=== PATIENT | female | born 1975 | race Caucasian/White ===

== ENCOUNTER → 2017-10-23 | Outpatient (CLI) | payer BC ==
--- NOTE | 2017-10-23 19:08 | DIAGNOSTIC IMAGING REPORT ---
LUMBAR SPINE 5 VIEWS HISTORY: M54.10 Acute low back pain with radicular symptoms, duration les COMPARISON: None. FINDINGS: There is no fracture. No subluxation. Mild disc space narrowing at L5-S1. Remaining disc spaces are preserved. Small endplate osteophytes throughout the lumbar spine. Mild facet osteoarthritis at L5-S1. The sacrum is intact. Sclerosis and small osteophytes at the bilateral sacroiliac joints consistent with mild degenerative change. This is most pronounced on the left. No erosions identified. Minimal levoscoliosis. IMPRESSION: 1. No fracture or subluxation within the lumbar spine. 2. Mild degenerative changes at L5-S1 and within the bilateral sacroiliac joints. 3. Minimal levoscoliosis which could be positional. Electronically signed by: Harris Jiménez M.D. 10/23/2017 7:06 PM Dictated Date/Time: 10/23/2017 7:04 PM
== END | disposition home or self-care (01) ==
LOC: C.RAD 18:16
PROVIDERS: ATTEND Nurse Practitioner
DX: M54.16 Radiculopathy, lumbar region (principal)